=== PATIENT | male | born 1975 | race Caucasian/White ===

== ENCOUNTER 2019-01-27 06:00 | Day surgery (SDC) | payer OTHER ==
[~2019-01-27] VITALS: Ht 185.4 cm; Wt 85.3 kg
[~2019-01-27 06:00] MED LIST: CELEXA10 MG PO; HYDROCODON-ACE1 EAC8 PO
--- NOTE | 2019-01-27 08:12 | NUR ---
PT ALERT, ORIENTED AND HAVING ANY KIND OF PROCEDURE OF ANY KIND FOR THE FIRST TIME.PT SEEMED TO COPE WITH PREP, SEEMED PLEASED I WALKED HIM THROUGH WHAT HE COULD EXPECT TODAY. HIS WILL BE BY TO TAKE HIM HOME. EXTENDED A BLESSING OR STAFF CAME FOR PT. WILL FOLLOW NEEDED
--- NOTE | 2019-01-27 08:19 | NUR ---
01/27/19 0819 Ho Deng 0755) PATIENT ARRIVES VERY SLEEPY, BUT HOLING OWN AIRWAY. 0808) PLACED ON RA TOLLERATING WELL. 0811) AWAKE TALKING TO NURSE TELLING JOKES,
--- NOTE | 2019-01-27 13:04 | OR ---
[facility] [address], [place] [address] Signed DATE OF OPERATION: 01/27/2019 SURGEON: Jaylan Ward MD PREOPERATIVE DIAGNOSES: 1. Rectal bleeding. 2. Pruritus ani. POSTOPERATIVE DIAGNOSES: 1. Minimal sigmoid diverticulosis. 2. Mild pruritus ani. 3. Minimal internal hemorrhoids. PROCEDURE PERFORMED: Colonoscopy without biopsy. ESTIMATED BLOOD LOSS: None. INDICATIONS: Jabier is a 44-year-old gentleman who was asked to see me for colonoscopy. He has had a lot of trouble with perianal itching and burning associated with some rectal pain and bleeding. He said he has been trying all sorts of things and nothing seems to be helping. He gives no family history of colon cancer or polyps or inflammatory bowel disease. I had met with Jabier in the office and reviewed the above findings. I gave him a pamphlet on colonoscopy and we reviewed that together in detail. He understands the nature of a colonoscopy along with its risks including, but not limited to gas, bloating, crampy abdominal pain, bleeding, perforation, requiring surgery, and missed diagnosis. He also understands the need for IV conscious sedation. He expressed understanding and would like to proceed. Given his daily need for hydrocodone, Celexa and Ambien, we asked that an anesthesia provider help us with increased monitoring and sedation with propofol. That proved to be a rand decision. In fact, he used quite a bit of propofol. DESCRIPTION OF PROCEDURE: Jabier was taken into our endoscopy suite and placed in the left lateral decubitus position. He was given IV sedation with propofol per our nurse poke in. A digital rectal exam was performed and he does have quite a bit of hair over his body including his gluteal crease and perianal area. That skin is a little pale and he is starting to develop some of the ridges around the anus. He has good sphincter tone. No obvious Electronically Signed By: JAYLAN WARD MD 01/27/19 1304 PATIENT NAME: JABIER SMITH OPERATIVE REPORT DATE OF : 77 REPORT #: [id number] PHYSICIAN: JAYLAN WARD MD PCP: CAROLYNE TRACY REPORT IS CONFIDENTIAL AND NOT TO BE RELEASED WITHOUT AUTHORIZATION [facility] [address], [place] [address] Signed external hemorrhoids. No masses. The adult colonoscope was introduced and advanced all the way into the cecum under direct visualization of the camera without difficulty. His prep was good. We could easily see the appendiceal orifice, the platinum's foot, and the ileocecal valve. We took pictures throughout for photodocumentation. The scope was slowly withdrawn. There were no inflammatory changes throughout his entire colon and rectum. In his proximal to mid rectum, he had several diverticula. They were average in size, few in number, and scattered about. The rectum itself was unremarkable. Upon retroflexion of the scope, he has pretty standard internal hemorrhoid tissue. He had one hemorrhoid that was a little larger than the others. No obvious bleeding at this time. After this, the gas was suctioned out and the colonoscope removed. Jabier tolerated the procedure quite well. RECOMMENDATIONS: I will see Jabier back in my office in 7 to 14 days to review the results with him. It looks like he is dealing with pruritus ani. If he wants a formal exam in the office, we are happy to do that as well. Jaylan Ward MD ALB/MODL /[id number] cc: MD Carolyne Dozier PA Copies: JAYLAN WARD MD, LINDA PA ~ Electronically Signed By: JAYLAN WARD MD 01/27/19 1304 PATIENT NAME: JABIER SMITH OPERATIVE REPORT DATE OF : 77 REPORT #: [id number] PHYSICIAN: JAYLAN WARD MD PCP: CAROLYNE TRACY REPORT IS CONFIDENTIAL AND NOT TO BE RELEASED WITHOUT AUTHORIZATION
== END 2019-01-27 08:40 | disposition home or self-care (01) ==
LOC: DS 06:00 → OPS 06:00 → DS 06:45 → OPS 08:40
PROVIDERS: Colon & Rectal Surgery
PROC: 0DJD8ZZ Inspection of Lower Intestinal Tract, Via Natural or Artificial Opening Endoscopic (ICD-10-PCS; principal; 2019-01-27 06:45)
DX: K64.8 Other hemorrhoids (principal); K57.30 Diverticulosis of large intestine without perforation or abscess without bleeding; L29.0 Pruritus ani; F32.9 Major depressive disorder, single episode, unspecified; M41.9 Scoliosis, unspecified; Z88.8 Allergy status to other drugs, medicaments and biological substances
CPT/HCPCS: J2704; J7120

== ENCOUNTER 2020-07-01 15:01 | Emergency (ER) | payer OTHER ==
[~2020-07-01] VITALS: Ht 185.4 cm; Wt 85.3 kg
[2020-07-01] MEDS ORDERED: BUPROPION XL150 MG PO (15:21)
[2020-07-01] MEDS ORDERED: VENTOLIN HFA18 GM (15:22)
--- NOTE | 2020-07-01 17:10 | EKG ---
[facility] [address] [facility] [place], [place] [address] Signed Normal sinus rhythm Normal ECG No previous ECGs available Confirmed by SHAREE BARNES DO ([id number]) on 07/01/2020 5:10:15 PM Electronically Signed By: SHAREE BARNES DO 07/01/20 1710 PATIENT NAME: MIC SMITH Electrocardiogram DATE OF : 77 PHYSICIAN: SHAREE BARNES DO REPORT #: [id number] REPORT IS CONFIDENTIAL AND NOT TO BE RELEASED WITHOUT AUTHORIZATION
== END 2020-07-01 17:34 | disposition home or self-care (01) ==
LOC: ED 15:01
DX: R51.9 Headache, unspecified (principal); H53.9 Unspecified visual disturbance; Z88.8 Allergy status to other drugs, medicaments and biological substances; Z79.891 Long term (current) use of opiate analgesic; Z79.899 Other long term (current) drug therapy
CPT/HCPCS: 70450; 80053; 84443; 85025; 93005; 93010; 99285-25

== ENCOUNTER 2020-07-11 08:20 | Emergency (ER) | payer OTHER ==
[~2020-07-11] VITALS: Ht 185.4 cm; Wt 85.3 kg
[~2020-07-11 08:20] MED LIST changes: +BUPROPION XL150 MG PO; +VENTOLIN HFA18 GM
--- OUTSIDE RECORDS SUMMARY | 2020-07-11 08:24 | XMS ---
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 Jaspreet has no Care Guidelines for this patient. [facility] NOTE: Visits indicate total known visits. ED/C VISIT TRACKING (12 MO.) 07/11/2020 08:[address] [facility] [place] TYPE: Emergency COMPLAINT: - CHEST PAIN 07/01/2020 15:02 [facility] [place] TYPE: Emergency COMPLAINT: - DIZZY, HEADACHE, HEART RATE HIGH DIAGNOSES: - Other ocean transportation intermediary (current) drug therapy - Headache, unspecified - Unspecified visual disturbance - Palpitations - Allergy status to other drugs, medicaments and biological substances - FDC (current) use of opiate analgesic INPATIENT VISIT TRACKING (12 MO.) No inpatient visits to display in this time frame [email or web address]
--- NOTE | 2020-07-11 16:52 | EKG ---
[facility] [address] [facility] [place], [place] [address] Signed Normal sinus rhythm Normal ECG Confirmed by CHRISTIANE SANCHEZ MD ([id number]) on 07/11/2020 4:52:19 PM Electronically Signed By: CHRISTIANE SANCHEZ MD 07/11/20 165 PATIENT NAME: MIC SMITH Electrocardiogram DATE OF : 77 PHYSICIAN: CHRISTIANE SANCHEZ MD REPORT #: [id number] REPORT IS CONFIDENTIAL AND NOT TO BE RELEASED WITHOUT AUTHORIZATION
== END 2020-07-11 10:09 | disposition home or self-care (01) ==
LOC: ED 08:20
DX: R07.9 Chest pain, unspecified (principal); R03.0 Elevated blood-pressure reading, without diagnosis of hypertension; Z88.8 Allergy status to other drugs, medicaments and biological substances
CPT/HCPCS: 71045; 80053; 83735; 84484; 85025; 85379; 93005; 93010; 99285-25

== ENCOUNTER 2023-01-05 17:30 | Emergency (ER) | payer OTHER ==
[~2023-01-05] VITALS: Ht 185.4 cm; Wt 85.3 kg
--- OUTSIDE RECORDS SUMMARY | 2023-01-05 17:34 | XMS ---
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 [facility] VISIT COUNT (12 MO.) 1 [facility] TOTAL 1 NOTE: Visits indicate total known visits. ED/UCC VISIT TRACKING (12 MO.) 01/05/2023 17:32 [facility] [place] TYPE: Emergency COMPLAINT: - HIGH BLOOD INPATIENT VISIT TRACKING (12 MO.) No inpatient visits to display in this time frame [email or web address]
[2023-01-05] MEDS ORDERED: LOSARTAN POTASS50 MG PO (21:36)
[2023-01-05 21:53] VITALS: BP 145/95
--- NOTE | 2023-01-06 18:23 | EKG ---
[facility] [address] [facility] [place] [address] Signed Normal sinus rhythm with sinus arrhythmia Left axis deviation Minimal voltage criteria for LVH, may be normal variant ( [employer] product ) Abnormal ECG When compared with ECG of 11-JUL-2020 08:24, Nonspecific T wave abnormality no longer evident in Anterior leads Confirmed by Dinesh Bardales MD () on 01/06/2023 6:22:45 PM Electronically Signed By: DINESH BARDALES MD 01/06/23 182 PATIENT NAME: MIC SMITH Electrocardiogram DATE OF : 77 PHYSICIAN: DINESH BARDALES MD REPORT #: [id number] REPORT IS CONFIDENTIAL AND NOT TO BE RELEASED WITHOUT AUTHORIZATION
== END 2023-01-05 21:53 | disposition home or self-care (01) ==
LOC: ED 17:30
DX: I10 Essential (primary) hypertension (principal); Z88.8 Allergy status to other drugs, medicaments and biological substances; Z79.899 Other long term (current) drug therapy
CPT/HCPCS: 36415; 71045; 80053; 83735; 84484; 85025; 93005; 93010; 96374; 96375; 99284-25; J0360; J2060